=== PATIENT | female | born 1980 | race Asian ===

== ENCOUNTER 2016-07-19 23:57 | Inpatient (IN) | payer OTHER ==
[2016-07-20] MEDS ORDERED: OLIVE OIL 118 ML BTL MISC PRN (00:17)
[2016-07-20] MEDS ORDERED: LIDOCAINE 1% 30 ML SDV SC PRN (00:17)
[2016-07-20] MEDS ORDERED: LR 1,000 ML IV PRN (00:17)
[2016-07-20] MEDS ORDERED: AMPICILLIN SODIUM 2 GM in NS 100 ML IV ONE (00:17)
[2016-07-20] MEDS ORDERED: EPSOM SALT 454 GM TP PRN (00:17)
[2016-07-20] MEDS ORDERED: OXYTOCIN/RINGERS LACTATE 1,000 ML IV PRN (00:17)
[2016-07-20] MEDS ORDERED: TERBUTALINE SULFATE 1 MG/ML VIAL IV PRN (00:17)
[2016-07-20] MEDS ORDERED: OLIVE OIL 118 ML BTL ONE (00:34)
[2016-07-20] MEDS ORDERED: LIDOCAINE 1% 30 ML SDV ONE (00:34)
[2016-07-20] MEDS ORDERED: TERBUTALINE SULFATE 1 MG/ML VIAL ONE (00:35)
[2016-07-20] MEDS ORDERED: AMMONIA AROMATIC 1 EACH AMP IH ONE (00:35)
[2016-07-20] MEDS ORDERED: OXYTOCIN 10 UNIT/ML VIAL ONE (00:35)
[2016-07-20] MEDS ORDERED: MISOPROSTOL 200 MCG TAB ONE (00:35)
[2016-07-20 00:53] LABS: % IMMATURE GRANULYOCYTES 0.9 % (0.0-1.1); ABSOLUTE IMMATURE GRANULOCYTES 0.08 10^3/uL (0.00-0.10); ADD DIFF? NO; ADD MORPH? NO; ADD SCAN? NO; ATYPICAL LYMPHOCYTE FLAG 20 (0-99); FRAGMENT RBC FLAG 0 (0-99); HEMATOCRIT 38.7 % (38.0-47.0); HEMOGLOBIN 12.9 g/dL (12.6-16.3); LEFT SHIFT FLG 10 (0-99); LIPEMIA HEMOLYSIS FLAG 80 (0-99); MEAN CELL HEMOGLOBIN 30.6 pg (27.9-34.1); MEAN CELL HEMOGLOBIN CONCENTR. 33.3 g/dL (32.4-36.7); MEAN CELL VOLUME 91.7 fL (81.5-99.8); MEAN PLATELET VOLUME 10.8 fL (8.7-11.7); PLATELET CLUMPS FLAG 0 (0-99); PLATELET COUNT 346 10^3/uL (150-400); RED BLOOD CELL COUNT 4.22 10^6/uL (4.18-5.33)
[2016-07-20] MEDS ORDERED: fentaNYL 2MCG/ML/BUP 0.1% RTU 100 ML BAG EP ONE (01:33)
[2016-07-20] MEDS ORDERED: BUPIVACAINE 0.25% 30 ML SDV ONE (01:34)
[2016-07-20] MEDS ORDERED: PHENYLEPHRINE HCL 100 MCG/ML SYR ONE (01:34)
[2016-07-20] MEDS ORDERED: fentaNYL 100 MCG/2 ML INJ ONE (01:34)
--- NOTE | 2016-07-20 02:00 | GHP ---
[f rep st] PREOP HISTORY AND PHYSICAL DATE OF ADMISSION: 07/19/2016 HISTORY: Upon admission, the patient is at 35-year-old, G3, P1, A1, at 38 weeks 4 days with estimat ed due date 07/30/2016, who presents in early active labor. Patient had spontaneous onset of contra ctions approximately 2230 hours, with bloody show. Bag of water intact upon admission, and the [place] ent was found to be 4-5 cm dilated. heart tone monitoring revealed a category I tracing. Pat ient with positive GBS culture and received her first dose of antibiotics. PAST MEDICAL HISTORY: Patient with depression after her first, but also at that time her father and so had different social stressors. PAST SURGICAL HISTORY: D and C with a missed AB. Odontectomy in college. PAST OBSTETRIC HISTORY: In June 2012, a missed AB at 8 weeks, managed with D and C. In June 2013 , viable female pf 6 pounds, at 37 weeks 5 days, delivered vaginally with an epidural. ALLERGIES: The patient has no known drug allergies. CURRENT MEDICATIONS: vitamins with iron. LABORATORY DATA: labs: The patient has a blood type of O positive, with negative antibod y screen. RPR nonreactive. Rubella immune. Hepatitis B surface antigen negative. HIV negative. Thyroid normal. Pap smear negative. Gonorrhea and chlamydia negative. Hematocrit 35%, improved to 39% with iron. One-hour Glucola normal. Positive GBS culture. The patient received Tdap at 31 we eks' . Verifi testing was negative. PHYSICAL EXAMINATION: GENERAL: Upon admission, patient is well-developed, well-nourished, fe male, in strong discomfort with contractions. VITAL SIGNS: Normal. The patient is afebrile. See nursing notes for full documentation. heart tones show a category I tracing with baseline in the 120s, with great accelerations in variability. Contractions every 2-3 minutes. PELVIC: Initia l cervical exam 4-5 cm dilated, 60% effaced, and -1 station. The patient just had spontaneous ruptu re of membranes with moderate meconium noted. The patient is requesting an epidural, and the cervix will be rechecked after that. EXTREMITIES: Nontender. ASSESSMENT: Intrauterine at 38+ weeks' gestation, in active labor with spontaneous ruptur e of membranes with meconium. Positive GBS and has received 1 dose of antibiotics. PLAN: The patient will receive an epidural, and expect vaginal delivery not long afterwards. /[id number]/MODL
[2016-07-20] MEDS ORDERED: PHENYLEPHRINE HCL 100 MCG/ML SYR IVP PRN (02:40)
[2016-07-20] MEDS ORDERED: ONDANSETRON 4 MG/2 ML VIAL IVP PRN (02:40)
--- NOTE | 2016-07-20 02:44 | PREANESOB ---
Obstetric Pre-Anesthesia Info - General Info Proposed Procedure: Labor and delivery. : 3 Para: 1 WBD: 38 - Info Status: Full Term Monitors: External FHR Baseline (bpm): 125 FHR Pattern: Reassuring - Labor Status Cervical Dilation per last OB SVE: 5 Indications for Labor Analgesia: Pain Control Labor Epidural: Proposed Anesthesia ROS: Prior labor epidural. Allergies/Adverse Reactions: Allergy/AdvReac Type Severity Reaction Status Date / Time No Known Allergies Allergy Verified 07/26/12 09:42 Visit Medications: Generic Name Dose Route Start Last Admin Trade Name Freq PRN Reason Stop Dose Admin Ampicillin Sodium 1 gm/ Sodium 100 mls @ 200 mls/hr 07/20/16 04:18 Chloride IV 08/19/16 04:17 Q4H JESSIKA Protocol Lactated Ringer's 1,000 mls @ 0 mls/hr 07/20/16 00:17 07/20/16 00:25 Lr IV 01/16/17 00:16 1,000 mls PRN PRN Administration SEE PROTOCOL CONDITIONS Protocol Per Protocol Oxytocin/Lactated Ringer's 1,000 mls @ 150 mls/hr 07/20/16 00:17 Pitocin 20 Units/Lr (Premix) IV PRN PRN Post- bleeding Ibuprofen 600 mg 07/20/16 00:17 Motrin PO 01/16/17 00:16 Q6HRS PRN post , inflammation Lidocaine HCl 30 ml 07/20/16 00:17 Lidocaine Hcl 1% SC 01/16/17 00:16 ONCE PRN Episiotomy Magnesium Sulfate 454 gm 07/20/16 00:17 Epsom Salt TP 01/16/17 00:16 PRN PRN perineal discomfort Allison Oil 118 ml 07/20/16 00:17 Sweet Oil MISC 01/16/17 00:16 ONCE PRN preneal massage Terbutaline Sulfate 0.25 mg 07/20/16 00:17 Brethine IV 01/16/17 00:16 ONCE PRN Tachysystole Discontinued Medications Generic Name Dose Route Start Last Admin Trade Name Freq PRN Reason Stop Dose Admin Ammonia (Aromatic Spirit) Confirm 07/20/16 00:35 Ammonia Aromatic Administered 07/20/16 00:36 Dose 1 each IH .STK-MED ONE Bupivacaine HCl Confirm 07/20/16 01:34 Sensorcaine 0.25% Sdv Administered 07/20/16 01:35 Dose 30 ml .ROUTE .STK-MED ONE Ephedrine Sulfate Confirm 07/20/16 00:35 Ephedrine Sulfate Administered 07/20/16 00:36 Dose 50 mg .ROUTE .STK-MED ONE Fentanyl Confirm 07/20/16 01:34 Sublimaze Administered 07/20/16 01:35 Dose 100 mcg .ROUTE .STK-MED ONE Fentanyl/Bupivacaine HCl Confirm 07/20/16 01:33 Fentanyl/Bupivacaine/Ns 2 Mcg/Ml 0.1% (Premix Administered 07/20/16 01:34 Dose 100 ml EP .STK-MED ONE Ampicillin Sodium 2 gm/ Sodium 110 mls @ 220 mls/hr 07/20/16 00:17 07/20/16 00:37 Chloride IV 07/20/16 00:46 110 mls ONCE ONE Administration Protocol Lidocaine HCl Confirm 07/20/16 00:34 Lidocaine Hcl 1% Administered 07/20/16 00:35 Dose 30 ml .ROUTE .STK-MED ONE Misoprostol Confirm 07/20/16 00:35 Cytotec Administered 07/20/16 00:36 Dose 1,000 mcg .ROUTE .STK-MED ONE Allison Oil Confirm 07/20/16 00:34 Sweet Oil Administered 07/20/16 00:35 Dose 118 ml .ROUTE .STK-MED ONE Oxytocin Confirm 07/20/16 00:35 Pitocin Administered 07/20/16 00:36 Dose 30 unit .ROUTE .STK-MED ONE Phenylephrine HCl Confirm 07/20/16 01:34 Dante-Synephrine Administered 07/20/16 01:35 Dose 1,000 mcg .ROUTE .STK-MED ONE Terbutaline Sulfate Confirm 07/20/16 00:35 Brethine Administered 07/20/16 00:36 Dose 1 mg .ROUTE .STK-MED ONE - Anesthesia History Response to Local Anesthetics: Normal Anesthesia & Operative History: No Prior Problems Family Anesthesia History: Negative - Social History Substance Use/Abuse: Denies - Focused Exam Blood Pressure: 134/85 Heart Rate: 73 Height/Weight (Nursing): Height 152.4 cm Weight 65.317 kg Physical Exam: Within normal limits. ASA Status: II Labs: 07/20/16 00:25 Patient ABO/Rh O POSITIVE 03/22/17 00:25 - Plan Anesthetic Plan: CSE Consent Signed and on Chart: Yes Patient/Guardian Understands and Agrees to Plan: Yes
--- NOTE | 2016-07-20 02:45 | POSTANESTH ---
Post Anesthetic Evaluation Cardiovascular Status: Normal, Stable Respiratory Status: Normal, Stable, Similar to Pre-op Cond. Level of Consciousness/Mental Status: Can Participate in Eval, Alert and Oriented Pain Control: Adequate, Prn Tx Ordered Nausea/Vomiting Control: Adequate, Prn Tx Ordered Complications Possibly Related to Anesthesia: None Noted (Tolerated CSE well, stable, comfortable.)
[2016-07-20] MEDS ORDERED: LR 500 ML IV SCH (03:00)
[2016-07-20] MEDS ORDERED: fentaNYL 2MCG/ML/BUP 0.1% RTU 100 ML EP SCH (03:00)
[2016-07-20] MEDS ORDERED: AMPICILLIN SODIUM 1 GM in NS 100 ML IV SCH (04:18)
--- NOTE | 2016-07-20 05:28 | OBPROC ---
- Labor and Delivery Onset of Contractions Date: 07/19/16 Onset of Contractions Time: 22:30 Onset of Contractions Type: Spontaneous Rupture of Membranes Date: 07/20/16 Rupture of Membranes Time: 01:25 Rupture of Membranes Type: Spontaneous Amniotic Fluid Color: Meconium Stained-Moderate Dilation Complete Time: 04:25 Delivery Type: Spontaneous Placenta Delivery Date: 07/20/16 Placenta Delivery Time: 05:05 Episiotomy/Laceration: Other (Specify) (none) EBL: 350 Complications: None, Other (Specify) (GBS +, rec'd 2 doses Abx) - Medications Labor Augmentation/Induction Meds Used: None Anesthesia: Epidural - [place] Info A Delivery Date: 07/20/16 Delivery Time: 04:50 Sex of : Male (layla) Score (1 Min): 8 Score (5 Min): 9
[2016-07-20] MEDS: IBUPROFEN 600 MG TAB PO PRN ×3 (05:31→17:59)
--- NOTE | 2016-07-20 08:45 | SOAPPROG ---
SOAP Progress Note Assessment/Plan: Assessment: 35y/o PP day 0 s/p of viable male Plan: Routine care Anticipate discharge home tmrw 07/20/16 08:42 Subjective: Pt resting in bed with infant at bedside. Reports delivery went well, perineum intact, lochia moderate. . Denies difficulty voiding. Denies BM. Objective: Vital Signs Temp Pulse Resp BP Pulse Ox 37.2 C 82 18 118/63 07/20/16 05:55 07/20/16 05:55 07/20/16 05:55 07/20/16 05:55 Laboratory Results 07/20/16 00:25 07/19/16 07/20/16 07/21/16 05:59 05:59 05:59 Output Total 525 Balance -525 Physical Exam - Physical Exam General Appearance: alert, no apparent distress Neuro/Psych: alert, normal mood/affect, oriented x 3 ICD10 Worksheet Patient Problems: Problems Problem Status Onset Spontaneous vaginal delivery Acute
[2016-07-20 10:28] VITALS: RESP 16
[2016-07-20] MEDS: HYDROCODONE/APAP 5/325 TAB PO PRN ×2 (15:27→20:57)
[2016-07-20] MEDS: DOCUSATE SODIUM 100 MG CAP PO PRN (18:03)
[2016-07-21] MEDS: IBUPROFEN 600 MG TAB PO PRN ×4 (00:41→20:16)
[2016-07-21] MEDS: HYDROCODONE/APAP 5/325 TAB PO PRN ×4 (00:42→17:55)
[2016-07-21 08:03] VITALS: O2SAT 98
[2016-07-21] MEDS: DOCUSATE SODIUM 100 MG CAP PO PRN ×2 (08:11→20:16)
--- NOTE | 2016-07-21 10:04 | SOAPPROG ---
SOAP Progress Note Assessment/Plan: Assessment: ppd# 1 s/p uncomplicated post course breast feeding - baby had renal ultrasound - awaiting results. will go home if cleared by peds Plan: routine post care and discharge instructions 07/21/16 10:01 07/21/16 10:02 Subjective: patient is doing well. pain is well controlled. normal lochia. denies headache and changes in vision. ambulating. passing gas. voiding without difficulty. Objective: Vital Signs Temp Pulse Resp BP Pulse Ox 36.6 C 86 16 109/74 98 07/21/16 08:02 07/21/16 08:02 07/21/16 08:02 07/21/16 08:02 07/21/16 08:02 Laboratory Results 07/20/16 00:25 07/20/16 07/21/16 07/22/16 05:59 05:59 05:59 Output Total 525 Balance -525 Physical Exam - Physical Exam General Appearance: WD/WN, alert, no apparent distress Respiratory: chest non-tender, lungs clear, normal breath sounds Cardiac/Chest: normal peripheral pulses, regular rate, rhythm Abdomen: normal bowel sounds, non-tender, soft, other (fundus firm and non tender) Skin: normal color, warm/dry Extremities: normal range of motion, non-tender, normal inspection Neuro/Psych: no motor/sensory deficits, alert, normal mood/affect, oriented x 3 ICD10 Worksheet Patient Problems: Problems Problem Status Onset Spontaneous vaginal delivery Acute
[2016-07-22] MEDS: IBUPROFEN 600 MG TAB PO PRN ×2 (05:32→11:50)
[2016-07-22 07:21] VITALS: BP 117/77; PULSE 95; TEMP 97.5
--- NOTE | 2016-07-22 07:51 | OBPROG ---
OBG Progress Note Assessment/Plan: Assessment: s/p PPD #2 - pt is stable Plan: Plan for d/c home today Instructions reviewed Rx given for [place] prn Cont PNV Pelvic rest RTC in 4 and 6 weeks for pp visit 07/22/16 07:50 07/22/16 07:51 Subjective: Pt seen and examined. Doing well with no complaints. Minimal cramping, relief with Motrin. Moderate lochia. No BM yet. without difficulty. Objective: 07/20/16 00:25 Patient ABO/Rh O POSITIVE 07/20/16 00:25 Temp Pulse Resp BP Pulse Ox 36.4 C 95 16 117/77 98 07/22/16 07:20 07/22/16 07:20 07/22/16 07:20 07/22/16 07:20 07/22/16 07:20 Uterine Position/Fundal Height: Umbilicus -2 Uterine Tone: Firm - Physical Exam General Appearance: WD/WN, alert, no apparent distress Respiratory: lungs clear, normal breath sounds Cardiac/Chest: regular rate, rhythm Abdomen: normal bowel sounds, non-tender, soft, flatus (+) Genitourinary: lochia (moderate) Extremities: non-tender, normal inspection Neuro/Psych: alert, normal mood/affect, oriented x 3 ICD10 Worksheet Patient Problems: Problems Problem Status Onset Spontaneous vaginal delivery Acute
== END 2016-07-22 12:50 | disposition home or self-care (01) | DRG 775 ==
LOC: FLD 23:57 → OBSVTOIN 23:57 → FOB 07-20 08:00
PROVIDERS: ADMIT Obstetrics & Gynecology; ATTEND Obstetrics & Gynecology
PROC: 10E0XZZ Delivery of Products of Conception, External Approach (ICD-10-PCS; principal; 2016-07-20)
DX: O80 Encounter for full-term uncomplicated delivery (principal); O77.0 Labor and delivery complicated by meconium in amniotic fluid; O99.820 Streptococcus B carrier state complicating pregnancy; Z3A.38 38 weeks gestation of pregnancy; Z37.0 Single live birth
CPT/HCPCS: J0290; J2370; J2590; J3010; J3105

== ENCOUNTER → 2018-01-04 | Outpatient (CLI) | payer OTHER | LOC: BMCIMAGING 09:59 | PROVIDERS: ATTEND Emergency Medicine | DX: M79.645 Pain in left finger(s) (principal) ==